=== PATIENT | male | born 1975 | race Caucasian/White ===

== ENCOUNTER 2016-07-17 13:45 | Observation (INO) ==
--- NOTE | 2016-07-17 14:12 | Emergency Department Note ---
Disposition Clinical Impression: Appendicitis Qualifiers: Appendicitis type: acute appendicitis Acute appendicitis type: unspecified acute appendicitis type Qualified Code(s): K35.80 - Unspecified acute appendicitis Disposition: Admitted As Inpatient Condition: Fair Referrals: Mar Uribe CNP [Primary Care Provider] - Forms: Work/School Release, ED Satisfaction Letter Time of Disposition: 15:32 Abdominal Pain HPI - General Chief Complaint: ED Abdominal Pain Stated Complaint: abd right side// nausea Time Seen by Provider: 07/17/16 14:11 Source: patient Mode of arrival: ambulatory Limitations: no limitations Nursing Notes Reviewed: Yes Vital Signs Reviewed: Yes - History of Present Illness HPI Narrative: Patient is a 40-year-old male with past medical history of hypertension, hyperlipidemia. He presented today due to right flank and right lower quadrant pain that began last night. He admits to mild nausea but denies any vomiting. Denies any measured fevers but does have subjective chills, diarrhea. Denies any chest pain, shortness of breath. He never had a pain like this before. Denies any hematuria, dysuria, change in bowel or bladder habits. He does state that he does not feel like eating and feels as if the pain is getting worse and localizing to the right lower quadrant. Pain Scale: 8 - Related Data Home Medications Medication Instructions Recorded Confirmed Atorvastatin Calcium [Lipitor] 20 mg PO DAILY 12/11/15 12/11/15 Losartan/HCTZ [Hyzaar 50-12.5 1 each PO DAILY 12/11/15 12/11/15 Tablet] Omeprazole [PriLOSEC] 20 mg PO DAILY 12/11/15 12/11/15 Oxybutynin Chloride [Ditropan Xl] 10 mg PO DAILY 12/11/15 12/11/15 Previous Rx's Medication Instructions Recorded TraMADol [Ultram] 50 mg PO Q6HR PRN #30 tablet 12/11/15 Ofloxacin OPTH Drops [Ocuflox] 2 drop LEFT EYE QID #1 bottle 03/30/16 HydrOXYzine Pamoate 25 mg PO TID PRN #30 capsule 07/06/16 PredniSONE [Prednisone] 10 - 60 mg PO DAILY #42 tablet 07/06/16 Allergies Allergy/AdvReac Type Severity Reaction Status Date / Time acetaminophen Allergy Hives Verified 07/06/16 15:19 [From Tylenol-Codeine #3] codeine Allergy Hives Verified 07/06/16 15:19 [From Tylenol-Codeine #3] All systems ED: reviewed and negative except as stated. Constitutional: Reports: chills Cardiovascular: Denies: chest pain Respiratory: Denies: cough, dyspnea Gastrointestinal: Reports: abdominal pain, nausea. Denies: vomiting, diarrhea, constipation, hematemesis, melena, hematochezia Genitourinary: Denies: urgency, dysuria, frequency Integumentary: Denies: rash Neurological: Denies: headache, weakness, numbness, paresthesias Abdominal Pain PMH - Past Medical History Medical history: Reports: hyperlipidemia, hypertension Male Surgical History: Reports: cholecystectomy Psychiatric history: Reports: no psych history - Social History Smoking status: Never smoker Alcohol use: Reports: none Drug use: Reports: none Physical Exam - General Limitations: no limitations General appearance: alert, in no apparent distress - Head Head exam: atraumatic, normocephalic, normal inspection - Eye Eye exam: Present: normal appearance, PERRL, EOMI - ENT ENT exam: normal exam, normal oropharynx, mucous membranes moist - Neck Neck exam: Present: normal inspection, full ROM, trachea midline - Respiratory Respiratory exam: Present: normal lung sounds bilaterally - Cardiovascular Cardiovascular exam: Present: regular rate, normal rhythm, normal heart sounds - Abdominal Exam Abdominal exam: Present: soft, tenderness (Right lower quadrant), tenderness at McBurney's Point. Absent: distention, guarding, rebound, rigidity, Kumari's sign - Extremities Exam Extremities exam: Present: normal inspection, full ROM. Absent: tenderness, pedal edema - Back Exam Back exam: Absent: tenderness, CVA tenderness (R), CVA tenderness (L), muscle spasm, paraspinal tenderness - Neurological Exam Neurological exam: Present: alert, oriented X3 - Psychiatric Psychiatric exam: Present: normal affect, normal mood - Skin Skin exam: Present: warm, dry, intact, normal color Course Course Narrative: Patient was tachycardic. Otherwise, the vitals were within normal limits. Physical exam shows right lower quadrant tenderness at McBurney's point. Current concern for appendicitis versus any stone. CT of the abdomen and pelvis was obtained and showed on, kidney appendicitis with appendicolith. Currently waiting on last return. Surgery was consult, spoke with Dr. Blood. He has accepted the patient for admission. Currently waiting on labs to be drawn 16:09 CBC shows WBC of 11.4. BMP not concerning. INR WNL. Vital Signs Temperature 98.4 F 07/17/16 14:07 Pulse Rate 101 07/17/16 14:07 Respiratory Rate 21 07/17/16 14:07 Blood Pressure 133/96 07/17/16 14:07 O2 Sat by Pulse Oximetry 96 07/17/16 14:07 Temperature 98.4 F 07/17/16 14:07 Pulse Rate 93 07/17/16 15:06 Respiratory Rate 16 07/17/16 15:06 Blood Pressure 122/72 07/17/16 15:06 O2 Sat by Pulse Oximetry 93 07/17/16 15:06 Oxygen Delivery Oxygen Delivery Room Air Abdominal Pain - MDM Narrative Medical decision making narrative: Patient was tachycardic. Otherwise, the vitals were within normal limits. Physical exam shows right lower quadrant tenderness at McBurney's point. Current concern for appendicitis versus any stone. CT of the abdomen and pelvis was obtained and showed on, kidney appendicitis with appendicolith. Currently waiting on last return. Surgery was consult, spoke with Dr. Blood. He has accepted the patient for admission. Currently waiting on labs to be drawn 16:09 CBC shows WBC of 11.4. BMP not concerning. INR WNL. - Medical Records Medical records reviewed: Yes I reviewed the patient's medical records. - Lab Data Lab results reviewed: Yes I reviewed the patient's lab results. Result diagrams: 07/17/16 15:39 07/17/16 15:39 Lab Results 07/17/16 07/17/16 07/17/16 Range/Units 14:15 15:39 15:39 WBC 11.4 H (4.3-11.1) K/mcL RBC 4.44 (4.19-5.50) M/mcL Hgb 13.9 (12.9-16.9) g/dL Hct 40.4 (37.5-50.1) % MCV 91.0 (83.0-100.0) fL MCH 31.3 (28.0-33.3) pg MCHC 34.4 (31.6-35.5) g/dL RDW 12.5 (11.5-14.5) % Plt Count 225 (140-400) K/mcL MPV 10.1 (9.4-12.4) fL Immature Gran % 0.2 (0-4) % Seg Neutrophils % 77.0 % Lymphocytes % 14.9 % Monocytes % 7.0 % Eosinophils % 0.5 % Basophils % 0.4 % Neutrophils # 8.8 (1.6-8.9) K/mcL Lymphocytes # 1.7 (0.6-4.6) K/mcL Monocytes # 0.8 (0.0-1.3) K/mcL Eosinophils # 0.1 (0.0-0.6) K/mcL Basophils # 0.0 (0.0-0.2) K/mcL Immature Plt Fraction 5.8 (1.1-6.1) % PT (9.4-12.1) Seconds INR APTT (26.0-36.0) Seconds Sodium 141 (136-145) mEq/L Potassium 3.6 (3.5-4.5) mEq/L Chloride 105 (98-109) mEq/L Carbon Dioxide 27 (19-29) mEq/L BUN 21 (8-26) mg/dL Creatinine 1.05 (0.72-1.25) mg/dL Est GFR ( Amer) > 60 (> 60) Est GFR (Non-Af Amer) > 60 (> 60) BUN/Creatinine Ratio 20 (6-26) Glucose 102 H (70-99) mg/dL Calculated Osmolality 295 (280-300) Calcium 9.1 (8.6-10.8) mg/dL Total Bilirubin 1.4 H (0.2-1.2) mg/dL Direct Bilirubin 0.5 (0.0-0.5) mg/dL Indirect Bilirubin 0.9 (0.0-1.2) mg/dL AST 20 (5-34) Units/L ALT 22 (0-55) Units/L Alkaline Phosphatase 89 (38-126) Units/L Serum Total Protein 6.8 (6.0-8.3) g/dL Albumin 3.6 (3.5-5.0) g/dL Globulin 3.2 (2.4-3.5) g/dL Albumin/Globulin Ratio 1.1 (1.1-2.2) Lipase 19 (8-78) Units/L Urine Color Dark Yellow (Yellow) Urine Clarity Clear (Clear) Urine pH 6.5 (5.0-8.0) pH Units Ur Specific [place] > 1.030 H (1.010-1.025) Urine Protein 30 H (Neg-Trace) mg/dL Urine Glucose (UA) Normal (Normal) mg/dL Urine Ketones Negative (Negative) mg/dL Urine Blood Negative (Negative) Urine Nitrite Negative (Negative) Urine Bilirubin Negative (Negative) Urine Urobilinogen Normal (Normal) mg/dL Ur Leukocyte Esterase Negative (Negative) Urine Microscopic RBC 0-3 (0-3) per hpf Urine Microscopic WBC 0-3 (0-3) per hpf Ur Squamous Epith Cells Few (None-Few) per lpf Urine Bacteria None Seen (None-Few) per hpf Hyaline Casts None Seen (None-Few) per lpf Ur Culture Indicated? NO (NO) 07/17/16 Range/Units 15:39 WBC (4.3-11.1) K/mcL RBC (4.19-5.50) M/mcL Hgb (12.9-16.9) g/dL Hct (37.5-50.1) % MCV (83.0-100.0) fL MCH (28.0-33.3) pg MCHC (31.6-35.5) g/dL RDW (11.5-14.5) % Plt Count (140-400) K/mcL MPV (9.4-12.4) fL Immature Gran % (0-4) % Seg Neutrophils % % Lymphocytes % % Monocytes % % Eosinophils % % Basophils % % Neutrophils # (1.6-8.9) K/mcL Lymphocytes # (0.6-4.6) K/mcL Monocytes # (0.0-1.3) K/mcL Eosinophils # (0.0-0.6) K/mcL Basophils # (0.0-0.2) K/mcL Immature Plt Fraction (1.1-6.1) % PT 12.7 H (9.4-12.1) Seconds INR 1.2 APTT 30.1 (26.0-36.0) Seconds Sodium (136-145) mEq/L Potassium (3.5-4.5) mEq/L Chloride (98-109) mEq/L Carbon Dioxide (19-29) mEq/L BUN (8-26) mg/dL Creatinine (0.72-1.25) mg/dL Est GFR ( Amer) (> 60) Est GFR (Non-Af Amer) (> 60) BUN/Creatinine Ratio (6-26) Glucose (70-99) mg/dL Calculated Osmolality (280-300) Calcium (8.6-10.8) mg/dL Total Bilirubin (0.2-1.2) mg/dL Direct Bilirubin (0.0-0.5) mg/dL Indirect Bilirubin (0.0-1.2) mg/dL AST (5-34) Units/L ALT (0-55) Units/L Alkaline Phosphatase (38-126) Units/L Serum Total Protein (6.0-8.3) g/dL Albumin (3.5-5.0) g/dL Globulin (2.4-3.5) g/dL Albumin/Globulin Ratio (1.1-2.2) Lipase (8-78) Units/L Urine Color (Yellow) Urine Clarity (Clear) Urine pH (5.0-8.0) pH Units Ur Specific [place] (1.010-1.025) Urine Protein (Neg-Trace) mg/dL Urine Glucose (UA) (Normal) mg/dL Urine Ketones (Negative) mg/dL Urine Blood (Negative) Urine Nitrite (Negative) Urine Bilirubin (Negative) Urine Urobilinogen (Normal) mg/dL Ur Leukocyte Esterase (Negative) Urine Microscopic RBC (0-3) per hpf Urine Microscopic WBC (0-3) per hpf Ur Squamous Epith Cells (None-Few) per lpf Urine Bacteria (None-Few) per hpf Hyaline Casts (None-Few) per lpf Ur Culture Indicated? (NO) - Radiology Data Radiology results reviewed: Yes I reviewed the patient's radiology results. Abdomen/Pelvis CT 07/17/16 14:30 IMPRESSION: 1. Uncomplicated acute appendicitis likely due to an obstructing appendicolith. 2. Trace free fluid in the right paracolic gutter is likely reactive. D/ / Larry Tesfaye MD / Larry Tesfaye MD Interpreting Provider: Larry Tesfaye MD S.B.A.R. - S.B.A.R. Situation: Demographics, MOA Background: Presenting Complaint, Relevant PMH, Meds, & Allergies Assessment: Vital Signs, Course and respsone to treatment, Exam Concerns, Patient/Family Expectation, Pertinant Lab Results, Outstanding Labs Recommendation: Barrier(s) to disposition, Recommendation based on pending studies, treatments, or consults Luis Report Given to: Dr. Jeremi Smith Repor Time: 15:32 Attestation Statement - Attestation Attestation: I examined this patient and my medical decision-making was reviewed with the [place] REPAIR TECHNICIAN/PA/Advanced Practice Nurse/Resident Physician. I agree with the documented findings, disposition and treatment plan as described except to the extent set forth below. 40-year-old male presents ED with right lower quadrant abdominal pain. Pain began this morning and has been getting progressively worse. Complains of chills but no measured fever. Nausea but no vomiting. No diarrhea. No other recent illness. No recent travel. No known ill exposures. Patient appears to be comfortable in no apparent distress. Oropharynx clear moist from a slightly dry. Neck is supple. Trachea midline. Chest clear to auscultation. Cardiac exam slightly tachycardic. Abdomen soft nondistended. Hypoactive bowel sounds with moderate tenderness in the right lower quadrant. Flanks nontender palpation. He was sent for CT revealing an uncomplicated acute appendicitis with appendicolith. Labs are still pending. Case was discussed with Dr. Blood for admission.
[2016-07-17] MEDS ORDERED: Ondansetron 4 MG/2 ML VIAL IVP ONE (14:38)
[2016-07-17] MEDS ORDERED: Ketorolac 30 MG/ML VIAL IVP ONE (14:38)
[2016-07-17 14:54] LABS: Bilirubin,Urine Negative (Negative); Blood,Urine Negative (Negative); Clarity,Urine Clear (Clear); Color,Urine Dark Yellow (Yellow); Glucose,Urine (UA) Normal (Normal); Ketones,Urine Negative (Negative); Leukocyte Esterase,Urine Negative (Negative); Nitrite,Urine Negative (Negative); PH,Urine 6.5 pH Units (5.0-8.0); Protein,Urine 30 mg/dL (Neg-Trace); Specific Gravity,Urine > 1.030 (1.010-1.025); Urobilinogen,Urine Normal (Normal)
[2016-07-17 14:55] LABS: Bacteria,Urine None Seen per hpf (None-Few); Hyaline Casts,Urine None Seen per lpf (None-Few); RBC,Urine 0-3 per hpf (0-3); Squamous Epithelial Cell,Urine Few per lpf (None-Few); WBC,Urine 0-3 per hpf (0-3)
[2016-07-17] MEDS ORDERED: Ringers Solution, Lactated 1,000 ML IVC ONE (15:21)
[2016-07-17 15:47] LABS: Basophils % 0.4 %; Eosinophils # 0.1 K/mcL (0.0-0.6); Eosinophils % 0.5 %; Hematocrit 40.4 % (37.5-50.1); Hemoglobin 13.9 g/dL (12.9-16.9); Immature Granulocytes % 0.2 % (0-4); Immature Platelets 5.8 % (1.1-6.1); Lymphocytes # 1.7 K/mcL (0.6-4.6); Lymphocytes % 14.9 %; Mean Corpuscular HGB Conc 34.4 g/dL (31.6-35.5); Mean Corpuscular Hemoglobin 31.3 pg (28.0-33.3); Mean Platelet Volume 10.1 fL (9.4-12.4); Monocytes # 0.8 K/mcL (0.0-1.3); Neutrophils # 8.8 K/mcL (1.6-8.9); Platelet Count 225 K/mcL (140-400); Red Blood Count 4.44 M/mcL (4.19-5.50); Red Cell Distribution Width 12.5 % (11.5-14.5)
[2016-07-17 15:52] LABS: INR 1.2; Prothrombin Time 12.7 Seconds (9.4-12.1)
[2016-07-17 15:54] LABS: Activated Partial Thrombo Time 30.1 Seconds (26.0-36.0)
[2016-07-17 16:04] LABS: Alanine Aminotransferase 22 Units/L (0-55); Albumin 3.6 g/dL (3.5-5.0); Albumin/Globulin Ratio 1.1 (1.1-2.2); Alkaline Phosphatase 89 Units/L (38-126); Aspartate Amino Transferase 20 Units/L (5-34); BUN/Creatinine Ratio 20 (6-26); Bilirubin,Direct 0.5 mg/dL (0.0-0.5); Bilirubin,Indirect 0.9 mg/dL (0.0-1.2); Bilirubin,Total 1.4 mg/dL (0.2-1.2); Blood Urea Nitrogen 21 mg/dL (8-26); Calcium 9.1 mg/dL (8.6-10.8); Carbon Dioxide 27 mEq/L (19-29); Chloride 105 mEq/L (98-109); Globulin 3.2 g/dL (2.4-3.5); Glucose 102 mg/dL (70-99); Lipase 19 Units/L (8-78); Osmolality,Calculated 295 (280-300); Potassium 3.6 mEq/L (3.5-4.5); Sodium 141 mEq/L (136-145); Total Protein 6.8 g/dL (6.0-8.3); eGFR For African Americans > 60 (> 60); eGFR For Non-African Americans > 60 (> 60)
--- NOTE | 2016-07-17 16:11 | General Surg History&Physical ---
Date of Encounter: 07/17/16 Time of Encounter: 16:11 Assessment and Plan (1) Acute appendicitis Current Visit: Yes Status: Acute The assessment and plan as outlined above was discussed with the patient and/or family members who expressed understanding and agreement. All questions were answered. I explained to the patient that he does have evidence of acute appendicitis and I think it would be appropriate to proceed with a laparoscopic appendectomy. Risks and benefits have been discussed with the patient and family and they agrees to the above procedure. Qualifiers: Acute appendicitis type: with localized peritonitis Qualified Code(s): K35.3 - Acute appendicitis with localized peritonitis History of Present Illness Chief complaint: Right sided abdominal pain HPI: 40 year old male with no significant past medical history significant for hyperlipidemia and hypertension states that he had the onset of sharp right sided abdominal pain yesterday evening that progressively worsened. He denies any nausea or vomiting and denies any diarrhea or constipation. He presented to the ER due to worsening RLQ pain symptoms. The pain is intermittent in nature and he admits to pain with coughing or movement. Past Med Surg Social Fam HX - Past Medical History Medical history: hyperlipidemia, hypertension Psychiatric history: no psych history - Past Surgical History Surgical History: no surgical history - Social History Smoking Status: Never smoker Smokeless Tobacco Status: No Alcohol use: none Drug use: none Medications and Allergies Atorvastatin Calcium [Lipitor] 20 mg PO DAILY 12/11/15 [History] Losartan/HCTZ [Hyzaar 50-12.5 Tablet] 1 each PO DAILY 12/11/15 [History] Omeprazole [PriLOSEC] 20 mg PO DAILY 12/11/15 [History] Oxybutynin Chloride [Ditropan Xl] 10 mg PO DAILY 12/11/15 [History] Allergies acetaminophen [From Tylenol-Codeine #3] Allergy (Verified 07/06/16 15:19) Hives codeine [From Tylenol-Codeine #3] Allergy (Verified 07/06/16 15:19) Hives Review of Systems All systems PM: reviewed and no additional remarkable complaints except as stated All systems PM: A 10-system review of systems was performed and is negative for pertinent findings except as documented above in the HPI. General Surgery Exam Initial Vital Signs Temp Pulse Resp BP Pulse Ox 98.4 F 101 21 133/96 96 07/17/16 14:07 07/17/16 14:07 07/17/16 14:07 07/17/16 14:07 07/17/16 14:07 - Respiratory normal expansion, normal respiratory effort, clear to auscultation - Cardiovascular Cardiovascular exam: Present: RRR, no murmurs/rubs/gallops - Abdomen Abdomen general surgery: Present: bowel sounds present, soft, tender (RLQ pain on palpation. No hernia noted.) - Neurologic Present: CN 2-12 grossly intact - Musculoskeletal Present: other (No clubbing, cyanosis, or edema) - Psychiatric Psychiatric general surgery: Present: A&Ox3 Results - Labs 07/17/16 15:39 07/17/16 15:39 Abnormal lab results WBC 11.4 K/mcL (4.3-11.1) H 07/17/16 15:39 PT 12.7 Seconds (9.4-12.1) H 07/17/16 15:39 Glucose 102 mg/dL (70-99) H 07/17/16 15:39 Total Bilirubin 1.4 mg/dL (0.2-1.2) H 07/17/16 15:39 Ur Specific [place] > 1.030 (1.010-1.025) H 07/17/16 14:15 Urine Protein 30 mg/dL (Neg-Trace) H 07/17/16 14:15 Diabetes panel 07/17/16 Range/Units 15:39 Sodium 141 (136-145) mEq/L Potassium 3.6 (3.5-4.5) mEq/L Chloride 105 (98-109) mEq/L Carbon Dioxide 27 (19-29) mEq/L BUN 21 (8-26) mg/dL Creatinine 1.05 (0.72-1.25) mg/dL Glucose 102 H (70-99) mg/dL Calcium 9.1 (8.6-10.8) mg/dL AST 20 (5-34) Units/L ALT 22 (0-55) Units/L Alkaline Phosphatase 89 (38-126) Units/L Albumin 3.6 (3.5-5.0) g/dL Calcium panel 07/17/16 Range/Units 15:39 Calcium 9.1 (8.6-10.8) mg/dL Albumin 3.6 (3.5-5.0) g/dL Pituitary panel 07/17/16 Range/Units 15:39 Sodium 141 (136-145) mEq/L Potassium 3.6 (3.5-4.5) mEq/L Chloride 105 (98-109) mEq/L Carbon Dioxide 27 (19-29) mEq/L BUN 21 (8-26) mg/dL Creatinine 1.05 (0.72-1.25) mg/dL Glucose 102 H (70-99) mg/dL Calcium 9.1 (8.6-10.8) mg/dL Adrenal panel 07/17/16 Range/Units 15:39 Sodium 141 (136-145) mEq/L Potassium 3.6 (3.5-4.5) mEq/L Chloride 105 (98-109) mEq/L Carbon Dioxide 27 (19-29) mEq/L BUN 21 (8-26) mg/dL Creatinine 1.05 (0.72-1.25) mg/dL Glucose 102 H (70-99) mg/dL Calcium 9.1 (8.6-10.8) mg/dL Total Bilirubin 1.4 H (0.2-1.2) mg/dL AST 20 (5-34) Units/L ALT 22 (0-55) Units/L Alkaline Phosphatase 89 (38-126) Units/L Albumin 3.6 (3.5-5.0) g/dL All other labs normal. - Imaging CT scan - abdomen: report reviewed, image reviewed (Evidence of fat stranding around the appendix without abscess.)
[2016-07-17] MEDS ORDERED: *HR* FentaNYL (PF) 100 MCG/2 ML VIAL ONE (17:53)
[2016-07-17] MEDS ORDERED: *HR* Propofol 200 MG/20 ML VIAL IVP ONE (17:53)
[2016-07-17] MEDS ORDERED: Lidocaine -MPF 2% 2 ML VIAL ONE (17:53)
[2016-07-17] MEDS ORDERED: *HR* Rocuronium Bromide 50 MG/5 ML VIAL ONE (17:53)
[2016-07-17] MEDS ORDERED: *HR* Midazolam HCl 2 MG/2 ML VIAL ONE (17:53)
[2016-07-17] MEDS ORDERED: *HR* Succinylcholine 200 MG/10 ML VIAL IVP ONE (17:53)
--- NOTE | 2016-07-17 18:10 | Anesthesia Evaluation PreOp ---
Date of Encounter: 07/17/16 Time of Encounter: 18:08 - Past History Planned Operation: Laparoscopic Appendectomy Cardiac History: HTN, Hyperlipidemia Pulmonary History: Denies Any Significant HX PAPER GOODS MACHINE OPERATOR History: Denies Any Significant HX Other Medical History: GERD Anesthesia History: No Prior Anesthetic Complications, Past Anesthesia Alcohol Use: none Drug use: none Medications and Allergies Atorvastatin Calcium [Lipitor] 20 mg PO DAILY 12/11/15 [History] Losartan/HCTZ [Hyzaar 50-12.5 Tablet] 1 tab PO DAILY 12/11/15 [History] Omeprazole [PriLOSEC] 20 mg PO DAILY 12/11/15 [History] Oxybutynin Chloride [Ditropan Xl] 10 mg PO DAILY 12/11/15 [History] Allergies acetaminophen [From Tylenol-Codeine #3] Allergy (Verified 07/06/16 15:19) Hives codeine [From Tylenol-Codeine #3] Allergy (Verified 07/06/16 15:19) Hives - Meds/Allergy Pre-op Review Medications Reviewed: Yes Allergies Reviewed: Yes Beta Blockers on Current Med List: No Anesthesia Results - Labs 07/17/16 15:39 07/17/16 15:39 - Imaging EKG: report reviewed (01/14/2016 SR, poor R wave progression) Anesthesia Exam Vital Signs/O2 Sat, Most Current Temp Pulse Resp BP Pulse Ox 98.4 F 93 16 120/79 93 07/17/16 14:07 07/17/16 15:06 07/17/16 17:02 07/17/16 17:02 07/17/16 15:06 Height: 6'/1.83 m Weight: 214 lbs/97 kg NPO (# of Hours): 8 Pain Scale: 6 Pain Scale Used: Numeric (1 - 10) - HEENT Pupil (Motor): EOMI Mallampati: III Teeth: Normal, Missing (missing right upper molars and lower front teeth) Oral Opening: Greater than 3 - PAPER GOODS MACHINE OPERATOR LOC: Oriented PAPER GOODS MACHINE OPERATOR Motor: Normal RUE, Normal LUE, Normal RLE, Normal LLE, Normal Face PAPER GOODS MACHINE OPERATOR Sensory: Normal: RUE, LUE, RLE, LLE, Face - Cardiac Rhythm: Regular Murmur: None - Pulmonary Breath Sounds: bilateral Clear Respiratory Effort: Symmetrical Anesthesia Assess/Plan ASA Score: 2 Modified Magno Scale for Level of Consciousness: Cooperative, oriented, and tranquil Anesthetic Plan: General Monitoring Plan: Standard Monitors Recovery Plan: PACU
[2016-07-17] MEDS ORDERED: CefOXitin 2,000 MG VIAL IVPB ONE (18:15)
[2016-07-17] MEDS ORDERED: Ondansetron 4 MG/2 ML VIAL ONE (18:39)
[2016-07-17] MEDS ORDERED: Dexamethasone 4 MG/ML VIAL ONE (18:39)
[2016-07-17] MEDS ORDERED: *HR* HYDROmorphone (PF) 1 MG/ML SYRINGE IVP PRN (18:41)
[2016-07-17] MEDS ORDERED: *HR* Promethazine 25 MG/ML VIAL IVP PRN (18:41)
[2016-07-17] MEDS ORDERED: cefOXitin 1,000 MG in D5% in Water (Mini-Bag+) 100 ML IVPB STA (18:41)
[2016-07-17] MEDS ORDERED: Neostigmine Methylsulfate 3 MG/3 ML SYRINGE ONE (18:41)
[2016-07-17] MEDS ORDERED: *HR* Morphine 10 MG/ML VIAL ONE (18:43)
--- NOTE | 2016-07-17 18:57 | Operative Note ---
Date of procedure: 07/17/16 Pre-op diagnosis: Acute appendicitis Post-op diagnosis: same Procedure: Laparoscopic appendectomy Anesthesia: SYLVIA Surgeon: Yifan Blood Estimated blood loss (cc): 15 Specimen: appendix Condition: stable Disposition: PACU Procedure in Detail: Date of surgery: 07/17/16 After properly identifying the patient, the patient was brought to the operating room and placed in supine position. After proper IV sedation was achieved followed by general endotracheal intubation, the patient's abdomen was prepped and draped in a normal sterile fashion. A timeout was performed noting the patient's name and procedure to be performed. A subumbilical incision with an 11 blade scalpel was made down to the level of the rectus fascia. The rectus fascia was incised and the abdomen was entered and a 12 mm port was placed through the port followed by insufflation with carbon dioxide. A laparoscopic camera was placed through the port which showed no injury to the interabdominal organs upon entry. A suprapubic 5 mm port in the left lower quadrant 5 mm port was then placed under direct camera visualization. The right lower quadrant was examined and the appendix was noted to be distended and erythematous, consistent with acute appendicitis. The appendix was retracted anteriorly with a nontraumatic grasper. The base of the cecum was dissected off the lateral sidewall with Bovie cauterization to allow for better retraction. The base of the appendix and then meso-appendix were dissected with the [place] dissector. The base of the appendix and the meso-appendix were then transected with a laparoscopic [place] stapler. The appendix were then removed from the abdomen via an Endobag. The right lower quadrant and pelvis were copiously irrigated with normal saline solution. Reinspection of the right lower quadrant demonstrated maintenance of hemostasis and all ports were then removed from the abdomen after the abdomen was desufflated. The rectus fascia for the subumbilical incision was closed with a figure-of- eight 0 Vicryl suture. Subcutaneous tissue was reapproximated with a 3-0 Vicryl suture. The epidermal and dermal layers for the remaining incisions were closed with 4-0 Monocryl sutures. Needle, sponge, and instrument counts were correct 2 and the incisions were covered with Steri-Strips and Band-Aids. The patient was aroused from IV sedation, extubated in the operating room without complication, and transported to the recovery room stable condition.
--- NOTE | 2016-07-17 19:48 | Anesthesia Evaluation Post Op ---
Date of Encounter: 07/17/16 Time of Encounter: 19:45 - Vital Signs Vital Signs: Vital Signs/O2 Sat, Most Current Temp Pulse Resp BP Pulse Ox 97.8 F 93 18 116/63 94 07/17/16 19:38 07/17/16 19:38 07/17/16 19:38 07/17/16 19:38 07/17/16 19:38 - Lungs Lungs: Clear Ascult./Percussion - Airway Airway: Non-obstructed - Cardiovascular Regular Rate - Mental Status Mental Status: Asleep with brisk response to light stimulation - Pain Pain Scale: 3 Pain Scale used: Numeric (1 - 10) - Nausea Vomiting Nausea Vomiting: Not Present - Hydration Hydration: NPO, Has not voided Notes: 07/17/16 19:47 patient displays sleep apnea. CPAP ordered for patient. - Discharge PostOp Status: Transfer Patient to floor
[2016-07-17] MEDS ORDERED: 0.9 % Sodium Chloride 1,000 ML IVC SCH (19:56)
[2016-07-17] MEDS ORDERED: *HR* Morphine 2 MG/ML SYRINGE IVP PRN (19:56)
[2016-07-17] MEDS ORDERED: Ondansetron 4 MG/2 ML VIAL IVP PRN (19:56)
[2016-07-18] MEDS: Ketorolac 30 MG/ML VIAL IM SCH ×3 (00:47→12:45)
[2016-07-18] MEDS: cefOXitin 1,000 MG in D5% in Water (Mini-Bag+) 100 ML IVPB SCH ×2 (02:02→10:49)
[2016-07-18 04:49] LABS: Basophils % 0.1 %; Hematocrit 36.7 % (37.5-50.1); Hemoglobin 12.8 g/dL (12.9-16.9); Immature Granulocytes % 0.4 % (0-4); Lymphocytes # 0.6 K/mcL (0.6-4.6); Lymphocytes % 4.5 %; Mean Corpuscular HGB Conc 34.9 g/dL (31.6-35.5); Mean Corpuscular Hemoglobin 32.1 pg (28.0-33.3); Mean Platelet Volume 10.6 fL (9.4-12.4); Monocytes # 0.4 K/mcL (0.0-1.3); Monocytes % 3.2 %; Neutrophils # 12.4 K/mcL (1.6-8.9); Platelet Count 202 K/mcL (140-400); Red Blood Count 3.99 M/mcL (4.19-5.50); Red Cell Distribution Width 12.6 % (11.5-14.5); Segmented Neutrophils % 91.8 %
[2016-07-18 05:10] LABS: BUN/Creatinine Ratio 19 (6-26); Blood Urea Nitrogen 21 mg/dL (8-26); Calcium 8.4 mg/dL (8.6-10.8); Carbon Dioxide 24 mEq/L (19-29); Chloride 104 mEq/L (98-109); Glucose 163 mg/dL (70-99); Osmolality,Calculated 291 (280-300); Potassium 3.8 mEq/L (3.5-4.5); Sodium 137 mEq/L (136-145); eGFR For African Americans > 60 (> 60); eGFR For Non-African Americans > 60 (> 60)
[2016-07-18] MEDS ORDERED: *HR* Heparin 5,000 UNIT/ML VIAL SQ SCH (06:00)
--- NOTE | 2016-07-18 07:14 | Discharge Summary ---
Date of Encounter: 07/18/16 Time of Encounter: 07:50 - Discharge Diagnosis (1) Acute appendicitis Priority: Primary Status: Acute Qualifiers: Acute appendicitis type: with localized peritonitis Qualified Code(s): K35.3 - Acute appendicitis with localized peritonitis - Discharge Medications Prescriptions: Amoxicillin/Clavulanate [Augmentin] 875 mg PO BIDWM #10 tablet HYDROcodone/Acet 5/325 mg [[place] 5-325 mg] 1 tab PO Q6H PRN #26 tab PRN Reason: Pain Home Medications: Atorvastatin Calcium [Lipitor] 20 mg PO DAILY 12/11/15 [History] Losartan/HCTZ [Hyzaar 50-12.5 Tablet] 1 tab PO DAILY 12/11/15 [History] Omeprazole [PriLOSEC] 20 mg PO DAILY 12/11/15 [History] Oxybutynin Chloride [Ditropan Xl] 10 mg PO DAILY 12/11/15 [History] Amoxicillin/Clavulanate [Augmentin] 875 mg PO BIDWM #10 tablet 07/18/16 [Rx] HYDROcodone/Acet 5/325 mg [[place] 5-325 mg] 1 tab PO Q6H PRN #26 tab 07/18/16 [Rx ] Allergies/Adverse Reactions: Allergies acetaminophen [From Tylenol-Codeine #3] Allergy (Verified 07/06/16 15:19) Hives codeine [From Tylenol-Codeine #3] Allergy (Verified 07/06/16 15:19) Hives General Surgery Exam Initial Vital Signs Temp Pulse Resp BP Pulse Ox 98.4 F 101 21 133/96 96 07/17/16 14:07 07/17/16 14:07 07/17/16 14:07 07/17/16 14:07 07/17/16 14:07 - Eyes PERRL, normal ocular movement - Abdomen Abdomen general surgery: Present: soft, tender (Mild incisional pain to palpation) Date of admission: 07/17/16 16:54 Primary care physician: Mar Uribe CNP Discharging clinician: Yifan Blood Anticipated date of discharge: 07/18/16 - Patient Status Disposition: Home, Self-Care Condition: Good Functional capacity at discharge: independent ambulation Overall status at discharge: patient is progressing back to baseline - Discharge Instructions Follow Up With: Mar Uribe CNP [Primary Care Provider] - - Hospital Course Hospital course: Mr. Mann is a 40 year old male with a past medical history significant for hyperlipidemia and hypertension presented to the emergency room with a two-day history of right-sided abdominal pain. He had evidence of leukocytosis and a CT scan showing acute appendicitis and underwent a laparoscopic cholecystectomy on 07/17/2016. He tolerated procedure well and was able to tolerate a by mouth diet and the pain with oral pain medication was discharged home on 07/18/2016 with instructions to follow-up in the office in 2 weeks. Time spent discussing smoking cessation with patient: 3 to 10 minutes - Time Spent with Patient Total time spent providing and/or coordinating discharge services: Less than 30 minutes Labs on day of discharge: Labs from last 24 hours 07/18/16 07/18/16 04:29 04:29 WBC 13.5 H RBC 3.99 L Hgb 12.8 L Hct 36.7 L MCV 92.0 MCH 32.1 MCHC 34.9 RDW 12.6 Plt Count 202 MPV 10.6 Immature Gran % 0.4 Seg Neutrophils % 91.8 Lymphocytes % 4.5 Monocytes % 3.2 Eosinophils % 0.0 Basophils % 0.1 Neutrophils # 12.4 H Lymphocytes # 0.6 Monocytes # 0.4 Eosinophils # 0.0 Basophils # 0.0 Sodium 137 Potassium 3.8 Chloride 104 Carbon Dioxide 24 BUN 21 Creatinine 1.11 Est GFR ( Amer) > 60 Est GFR (Non-Af Amer) > 60 BUN/Creatinine Ratio 19 Glucose 163 H Calculated Osmolality 291 Calcium 8.4 L
[2016-07-18 07:28] VITALS: BP 96/63
[2016-07-18] MEDS ORDERED: Pantoprazole 40 MG VIAL IVP SCH (09:00)
== END 2016-07-18 13:12 | disposition home or self-care (01) ==
LOC: 3ANU 13:45 → EMEROO 13:45 → 3ANU 17:06
PROVIDERS: ADMIT Surgery; ATTEND Surgery